=== PATIENT | female | born 1985 | race African-American/Black ===

== ENCOUNTER 2019-04-25 18:56 | Emergency (ER) | payer OTHER ==
[~2019-04-25] VITALS: Ht 177.8 cm; Wt 74.4 kg
[2019-04-25 19:15] VITALS: BP 117/73
--- NOTE | 2019-04-25 19:26 | Emergency Room Report ---
History of Present Illness General Chief Complaint: Female Urogenital Problems Source: Patient Present Illness HPI 33-year-old female presents to the emergency department requesting treatment for STDs. Patient reports that she had recent unprotected intercourse with someone that she believes is STD positive. Patient reports vaginal discharge as well as pelvic pain. She reports she is currently on her period. She denies urinary frequency, urgency or hematuria. She denies external vaginal lesions, rashes or itching. Patient reports some dysuria. Patient denies suspicion of . She denies abdominal pain, nausea, vomiting, fevers, chills, swollen tender lymph nodes or joint pain. She denies recent antibiotic use or history of immune compromise she reports history of asthma and migraines. She denies low back pain. No other aggravating or relieving factors at this time. Allergies: Coded Allergies: No Known Allergies (Unverified , 04/25/19) Patient History Past Medical History: see triage record Past Surgical History: none Pertinent Family History: none Last Menstrual Period: now Now: No Reviewed Nursing Documentation: PMH: Agreed; PSxH: Agreed Nursing Documentation-PMH Hx Asthma: Yes Review of Systems All Other Systems: negative except mentioned in HPI Physical Exam Vital Signs Date Time Temp Pulse Resp B/P (MAP) Pulse Ox O2 Delivery O2 Flow Rate FiO2 04/25/19 19:09 98.8 95 16 117/73 (88) 99 Room Air Sp02 EP Interpretation: reviewed, normal General Appearance: no apparent distress, alert, GCS 15, non-toxic Head: normocephalic, atraumatic Eyes: bilateral eye normal inspection, bilateral eye PERRL ENT: hearing grossly normal, normal voice Neck: full range of motion Respiratory: lungs clear, normal breath sounds, speaking full sentences Cardiovascular #1: regular rate, rhythm Gastrointestinal: normal bowel sounds, non tender, soft, non-distended, no guarding Rectal: deferred Genitourinary: normal inspection, no CVA tenderness, adnexa normal, other - Pelvic deferred by pt. Pt. also does not want Urine testing performed Musculoskeletal: back normal, gait/station normal, normal range of motion, non- tender Neurologic: alert, oriented x3, responsive, motor strength/tone normal, sensory intact, speech normal, grossly normal Psychiatric: judgement/insight normal Skin: other - deferred by pt. Lymphatic: no adenopathy Medical Decision Making PA Attestation Dr. Horowitz is my supervising Physician whom patient management has been discussed with. Diagnostic Impression: Primary Impression: Venereal disease contact ER Course 33-year-old female presents to the emergency department requesting treatment for STDs. Patient reports that she had recent unprotected intercourse with someone that she believes is STD positive. Patient reports vaginal discharge as well as pelvic pain. She reports she is currently on her period. She denies urinary frequency, urgency or hematuria. She denies external vaginal lesions, rashes or itching. Patient reports some dysuria. Patient denies suspicion of . She denies abdominal pain, nausea, vomiting, fevers, chills, swollen tender lymph nodes or joint pain. She denies recent antibiotic use or history of immune compromise she reports history of asthma and migraines. She denies low back pain. No other aggravating or relieving factors at this time. Ddx considered but are not limited to UTi , STI, G & C, trichomonas, Vaginitis , cervicitis, bartholins gland cyst or cellulitis. Vital signs: are WNL, pt. is afebrile H&PE are most consistent with exposure or contact with the venereal disease, patient is declines pelvic exam she also declines urinary testing. Patient states that she does not need to urinate and she does not want to wait for results. Patient states she just wants to be treated for chlamydia and gonorrhea. ORDERS: - Declined by pt. ---pt. declines hcg testing and therefore cannot be rx'd doxy ED INTERVENTIONS: -250mg Rocephin IM DISCHARGE: At this time pt. is stable for d/c to home. Will provide printed patient care instructions, and any necessary prescriptions. Care plan and follow up instructions have been discussed with the patient prior to discharge. Last Vital Signs Date Time Temp Pulse Resp B/P (MAP) Pulse Ox O2 Delivery O2 Flow Rate FiO2 04/25/19 19:09 98.8 95 16 117/73 (88) 99 Room Air Disposition: HOME, SELF-CARE Condition: Stable Scripts Azithromycin* (ZITHROMAX*) 250 Mg Tablet 250 MG ORAL DAILY, #6 TAB 0 Refills Take two tables once daily for 1 day, then one tablet once daily for 4 days. Prov: Viviane Alcantara 04/25/19 Patient Instructions: Sexually Transmitted Disease, [id number] Additional Instructions: Take medications as directed. Follow up with a OBGYN within 3-5 days, even if your symptoms have resolved. Return sooner to ED if new symptoms occur, or current symptoms become worse. - Please note that this Emergency Department Report was dictated using Flow[employer] assurance practice manager technology software, occasionally this can lead to erroneous entry secondary to interpretation by the dictation equipment. Viviane Alcantara Apr 25, 2019 19:26
[2019-04-25] MEDS ORDERED: Lidocaine 1% MPF 10mg/ml 5ml INJ ONE (19:30)
[2019-04-25] MEDS ORDERED: ZITHROMAX250 MG ORAL (19:47)
[2019-04-25 20:00] VITALS: BP 125/76
== END 2019-04-25 20:00 | disposition home or self-care (01) ==
LOC: EMR 19:35
DX: Z20.2 Contact with and (suspected) exposure to infections with a predominantly sexual mode of transmission (principal); J45.909 Unspecified asthma, uncomplicated
CPT/HCPCS: 96372; 96374; J0696; Z7502; 99284

== ENCOUNTER 2019-05-03 13:27 | Emergency (ER) | payer MEDICAID ==
[~2019-05-03] VITALS: Ht 177.8 cm; Wt 72.6 kg
[~2019-05-03 13:27] MED LIST: ZITHROMAX250 MG ORAL
--- NOTE | 2019-05-03 14:00 | NUR ---
ED Nurse Note: PT REPORTS OF HAVING VAGIANL PAIN WITH WHITE DISCHARGE X FEW DAYS AFTER HAVING UNPROTECTED SEXUAL ACTIVITY. BREATHING NORMAL/EVEN/UNLABORED. SKIN WARM/DRY/INTACT. NAD NOTED.
[2019-05-03 14:28] VITALS: BP 111/77
[2019-05-03] MEDS ORDERED: Azithromycin 250mg tab ORAL ONE (14:30)
[2019-05-03] MEDS ORDERED: Lidocaine 1% MPF 10mg/ml 5ml INJ ONE (14:30)
[2019-05-03 14:33] LABS: APPEARANCE,URINE CLEAR; BILIRUBIN, URINE NEGATIVE (NEGATIVE); GLUCOSE, URINE (UA) NEGATIVE (NEGATIVE); KETONES,URINE NEGATIVE (NEGATIVE); LEUKOCYTE ESTERASE ,URINE 1+ (NEGATIVE); NITRITE,URINE NEGATIVE (NEGATIVE); PH,URINE 6.5 (4.5-8.0); PROTEIN,URINE NEGATIVE (NEGATIVE); UROBILINOGEN,URINE NORMAL MG/DL (0.0-1.0)
[2019-05-03 14:36] LABS: COLOR,URINE YELLOW
--- NOTE | 2019-05-03 14:36 | Emergency Room Report ---
History of Present Illness General Chief Complaint: Vaginal Source: Patient Present Illness HPI 33-year-old female with no significant past medical history here complaining of scant amount of vaginal discharge that started after sexual activity 2 days ago. Denies urinary frequency and urgency, hematuria. Denies fever and chills , nausea vomiting, abdominal pain. Complains of vaginal pain with discharge. Does not know if partner is positive for any sexually diseases. She also reports that has extremely pruritic rash on both hands after received oral intercourse. Has not taken medication for symptom relief. Is requesting treatment for possible chlamydia and gonorrhea. Denies other associated symptoms. LMP was 2 weeks ago and regular. Allergies: Coded Allergies: No Known Allergies (Unverified , 04/25/19) Patient History Past Medical History: see triage record Past Surgical History: unable to obtain Pertinent Family History: none Last Menstrual Period: 04/23/2019 Now: No Immunizations: UTD Reviewed Nursing Documentation: PMH: Agreed; PSxH: Agreed Nursing Documentation-PMH Hx Cardiac Problems: No Hx Hypertension: No Hx Pacemaker: No Hx Asthma: Yes Hx COPD: No Hx Diabetes: No Hx Cancer: No Hx Gastrointestinal Problems: No Hx Dialysis: No History Of Psychiatric Problem: Yes - anxiety Hx Neurological Problems: No Hx Cerebrovascular Accident: No Hx Seizures: No Review of Systems All Other Systems: negative except mentioned in HPI Physical Exam Vital Signs Date Time Temp Pulse Resp B/P (MAP) Pulse Ox O2 Delivery O2 Flow Rate FiO2 05/03/19 13:45 97.3 89 16 111/77 (88) 99 Room Air Sp02 EP Interpretation: reviewed, normal General Appearance: no apparent distress, alert, GCS 15, non-toxic Head: normocephalic, atraumatic Eyes: bilateral eye normal inspection, bilateral eye PERRL ENT: hearing grossly normal, normal pharynx, no angioedema, normal voice Neck: full range of motion, supple, supple/symm/no masses Respiratory: chest non-tender, lungs clear, normal breath sounds, no rhonchi, speaking full sentences Cardiovascular #1: regular rate, rhythm, no edema, normal capillary refill Gastrointestinal: normal bowel sounds, non tender, soft, non-distended, no guarding, no rebound Genitourinary: no CVA tenderness Musculoskeletal: back normal, normal range of motion, gait/station normal, non- tender Neurologic: alert, motor strength/tone normal, oriented x3, sensory intact, responsive, speech normal Psychiatric: judgement/insight normal, memory normal, mood/affect normal, no suicidal/homicidal ideation Skin: no rash Lymphatic: no adenopathy Medical Decision Making PA Attestation All my diagnosis and treatment plans were reviewed ad discussed with my supervising physician Dr. Wu Diagnostic Impression: Primary Impression: Vaginitis ER Course 33-year-old female with no significant past medical history here complaining of scant amount of vaginal discharge that started after sexual activity 2 days ago. Denies urinary frequency and urgency, hematuria. Denies fever and chills , nausea vomiting, abdominal pain. Complains of vaginal pain with discharge. Does not know if partner is positive for any sexually diseases. She also reports that has extremely pruritic rash on both hands after received oral intercourse. Has not taken medication for symptom relief. Is requesting treatment for possible chlamydia and gonorrhea. Denies other associated symptoms. LMP was 2 weeks ago and regular. Ddx considered but are not limited to: vaginitis, yeast infection, BV, chlamydia , Gonorrhea, syphilis, HIV, herpes 1 or 2, vaginitis, UTI Vital signs: are WNL, pt. is afebrile H&PE are most consistent with : Vaginitis ORDERS: UA, urine test, fluconazole ED INTERVENTIONS: Azithromycin, Rocephin DISCHARGE: At this time pt. is stable for d/c to home. Will provide printed patient care instructions, and any necessary prescriptions. Care plan and follow up instructions have been discussed with the patient prior to discharge. Last Vital Signs Date Time Temp Pulse Resp B/P (MAP) Pulse Ox O2 Delivery O2 Flow Rate FiO2 05/03/19 14:28 97.3 78 16 111/77 99 Room Air Disposition: HOME, SELF-CARE Condition: Stable Scripts Fluconazole (FLUCONAZOLE) 100 Mg Tablet 100 MG ORAL DAILY for 7 Days, #7 TAB 0 Refills Prov: Reynaldo Brooks 05/03/19 Patient Instructions: Vaginitis, [id number] Reynaldo Brooks May 03, 2019 14:36
[2019-05-03] MEDS ORDERED: FLUCONAZOLE100 MG ORAL (14:37)
[2019-05-03 14:44] VITALS: BP 111/77
--- NOTE | 2019-05-03 14:45 | NUR ---
ED Nurse Note: Pt cleared by health care Provider for discharge. DC instructions/prescription was given and explained to pt and verbalized understanding of teachings. All medical deviecs such as ID band removed. Pt is AAO x4, ambulatory and left with all personal belongings.
== END 2019-05-03 14:45 | disposition home or self-care (01) ==
LOC: EMR 14:30
DX: N76.0 Acute vaginitis (principal); J45.909 Unspecified asthma, uncomplicated
CPT/HCPCS: 81003; 81025; 96372; J0696; Q0144; Z7502; 99283

== ENCOUNTER 2019-05-07 13:47 | Emergency (ER) | payer MEDICAID ==
[~2019-05-07] VITALS: Ht 177.8 cm; Wt 72.6 kg
[~2019-05-07 13:47] MED LIST changes: +FLUCONAZOLE100 MG ORAL
--- NOTE | 2019-05-07 14:00 | NUR ---
ED Nurse Note: Pt walked into ED c/o vaginal itching. Pain 3/10 vagina. Pt states no discharge. No redness, swelling at site. No acute distress.
--- NOTE | 2019-05-07 14:09 | Emergency Room Report ---
History of Present Illness General Chief Complaint: Female Urogenital Problems Source: Patient Present Illness HPI 33-year-old female presents with possible STD exposure after unprotected sex approximately 2 to 3 days ago, she endorses some vaginal itching some pain around her rectum, no fevers no chills, no chest pain, no aggravating relieving factors severity is mild, patient wants STD treatment patient presents for evaluation Allergies: Coded Allergies: No Known Allergies (Unverified , 04/25/19) Patient History Past Medical History: see triage record Last Menstrual Period: 04/23/19 Reviewed Nursing Documentation: PMH: Agreed; PSxH: Agreed Nursing Documentation-PMH Past Medical History: No Stated History Hx Cardiac Problems: No Hx Hypertension: No Hx Pacemaker: No Hx Asthma: Yes Hx COPD: No Hx Diabetes: No Hx Cancer: No Hx Gastrointestinal Problems: No Hx Dialysis: No Hx Neurological Problems: No Hx Cerebrovascular Accident: No Hx Seizures: No Review of Systems All Other Systems: negative except mentioned in HPI Physical Exam Vital Signs Date Time Temp Pulse Resp B/P (MAP) Pulse Ox O2 Delivery O2 Flow Rate FiO2 05/07/19 13:52 98.4 101 15 125/77 (93) 97 Room Air General Appearance: well appearing, no apparent distress Head: normocephalic, atraumatic Eyes: bilateral eye PERRL, bilateral eye EOMI ENT: hearing grossly normal, normal voice Neck: full range of motion, supple Respiratory: no respiratory distress, speaking full sentences Neurologic: alert, normal gait Psychiatric: mood/affect normal Skin: no rash Medical Decision Making Diagnostic Impression: Primary Impression: Possible exposure to STD ER Course 33-year-old female possibly has STD exposure will start ceftriaxone is a throat counseled patient on safe sex, follow-up with PCP Last Vital Signs Date Time Temp Pulse Resp B/P (MAP) Pulse Ox O2 Delivery O2 Flow Rate FiO2 05/07/19 13:52 98.4 101 15 125/77 (93) 97 Room Air Disposition: HOME, SELF-CARE Condition: Stable Referrals: [facility]s [facility] Patient Instructions: Chlamydia, Female, [id number], Gonorrhea Additional Instructions: The patient was provided with discharge instructions, notified to follow-up with a primary care doctor and or specialist in the next 24-48 hours, and to return to the ED if they have worsening of their symptoms. Please note that this report is being documented using DRAGON technology. This can lead to erroneous entry secondary to incorrect interpretation by the dictating instrument. PLEASE FOLLOW-UP WITH [facility] FOR THOROUGH TESTING FOR STDs Eric Dove MD May 07, 2019 14:09
[2019-05-07] MEDS ORDERED: Azithromycin 250mg tab ORAL ONE (14:15)
[2019-05-07] MEDS ORDERED: Lidocaine 1% MPF 10mg/ml 5ml INJ ONE (14:15)
[2019-05-07 14:38] LABS: APPEARANCE,URINE CLEAR; BILIRUBIN, URINE NEGATIVE (NEGATIVE); COLOR,URINE PALE YELLOW; GLUCOSE, URINE (UA) NEGATIVE (NEGATIVE); KETONES,URINE NEGATIVE (NEGATIVE); LEUKOCYTE ESTERASE ,URINE 1+ (NEGATIVE); NITRITE,URINE NEGATIVE (NEGATIVE); PH,URINE 6 (4.5-8.0); PROTEIN,URINE NEGATIVE (NEGATIVE); UROBILINOGEN,URINE NORMAL MG/DL (0.0-1.0)
[2019-05-07] MEDS ORDERED: ALBUTEROL SULF8.5 GM INH (14:47)
[2019-05-07 14:51] VITALS: BP 120/77
--- NOTE | 2019-05-07 14:54 | NUR ---
ER DISCHARGE NOTE: Patient is cleared to be discharged per ERMD, pt is aox4, on room air, with stable vital signs. pt was given dc and prescription instructions, pt was able to verbalize understanding, pt id band removed. pt is able to ambulate with steady gait. pt took all belongings. albuterol presc given.
== END 2019-05-07 14:54 | disposition home or self-care (01) ==
LOC: EMR 14:27
DX: L29.2 Pruritus vulvae (principal); K62.89 Other specified diseases of anus and rectum; J45.909 Unspecified asthma, uncomplicated
CPT/HCPCS: 81003; 81025; 96372; 96374; J0696; Q0144; Z7502; 99284

== ENCOUNTER 2019-05-11 23:44 | Emergency (ER) | payer MEDICAID ==
[~2019-05-11] VITALS: Ht 177.8 cm; Wt 74.4 kg
[~2019-05-11 23:44] MED LIST changes: +ALBUTEROL SULF8.5 GM INH
[2019-05-11] MEDS ORDERED: NKM (23:58)
--- NOTE | 2019-05-12 00:09 | NUR ---
ED Nurse Note: Pt ambulated to ED from home c/o white vaginal discharge for days. Pt was seen on the , given a 7 day zpack and has not finished it.
[2019-05-12] MEDS ORDERED: Lidocaine 1% MPF 10mg/ml 5ml INJ ONE (00:15)
[2019-05-12] MEDS ORDERED: DOXYCYCLINE MO100 MG ORAL (00:27)
[2019-05-12 00:32] VITALS: BP 114/65
--- NOTE | 2019-05-12 00:34 | Emergency Room Report ---
History of Present Illness General Chief Complaint: Female Urogenital Problems Source: Patient Present Illness Allergies: Coded Allergies: No Known Allergies (Unverified , 04/25/19) Patient History Last Menstrual Period: 04/21/19 Nursing Documentation-[facility] Past Medical History: No History, Except For Hx Cardiac Problems: No Hx Hypertension: No Hx Pacemaker: No Hx Asthma: Yes Hx COPD: No Hx Diabetes: No Hx Cancer: No Hx Gastrointestinal Problems: No Hx Dialysis: No Hx Neurological Problems: No Hx Cerebrovascular Accident: No Hx Seizures: No Physical Exam Vital Signs Date Time Temp Pulse Resp B/P (MAP) Pulse Ox O2 Delivery O2 Flow Rate FiO2 05/11/19 23:56 98.6 87 18 114/65 (81) 100 Room Air Medical Decision Making Diagnostic Impression: Primary Impression: Dysuria Additional Impression: STI (sexually transmitted infection) Last Vital Signs Date Time Temp Pulse Resp B/P (MAP) Pulse Ox O2 Delivery O2 Flow Rate FiO2 05/11/19 23:56 98.6 87 18 114/65 (81) 100 Room Air Disposition: HOME, SELF-CARE Condition: Stable Scripts Doxycycline Monohydrate* (DOXYCYCLINE MONOHYDRATE*) 100 Mg Capsule 100 MG ORAL Q12H, #14 CAP 0 Refills Prov: Miah Vitale M.D. 05/12/19 Referrals: [facility] Patient Instructions: Miah Jones M.D. May 12, 2019 00:34
[2019-05-12 01:03] LABS: APPEARANCE,URINE CLEAR; BILIRUBIN, URINE NEGATIVE (NEGATIVE); COLOR,URINE PALE YELLOW; GLUCOSE, URINE (UA) NEGATIVE (NEGATIVE); KETONES,URINE NEGATIVE (NEGATIVE); LEUKOCYTE ESTERASE ,URINE 2+ (NEGATIVE); NITRITE,URINE NEGATIVE (NEGATIVE); PH,URINE 6 (4.5-8.0); PROTEIN,URINE NEGATIVE (NEGATIVE); UROBILINOGEN,URINE NORMAL MG/DL (0.0-1.0)
[2019-05-12 01:22] VITALS: BP 120/70
--- NOTE | 2019-05-12 01:22 | NUR ---
ER DISCHARGE NOTE: Patient is cleared to be discharged per ERMD, pt is aox4, on room air, with stable vital signs. pt was given dc and prescription instructions, pt was able to verbalize understanding, pt id band removed without complications. pt is able to ambulate with steady gait. pt took all belongings.
== END 2019-05-12 01:23 | disposition home or self-care (01) ==
LOC: EMR 05-12 00:25
DX: R30.0 Dysuria (principal); A64 Unspecified sexually transmitted disease
CPT/HCPCS: 81003; 81025; 96372; 96374; J0696; Z7502; 99284

== ENCOUNTER 2019-05-23 20:17 | Emergency (ER) | payer MEDICAID ==
[~2019-05-23] VITALS: Ht 180.3 cm; Wt 75.7 kg
[~2019-05-23 20:17] MED LIST changes: +DOXYCYCLINE MO100 MG ORAL; +NKM
--- NOTE | 2019-05-23 20:41 | Emergency Room Report ---
History of Present Illness General Chief Complaint: Female Urogenital Problems Source: Patient Present Illness HPI Patient presents with complaints of some continued discomfort with urination Also reports that she has had off-and-on vaginal discharge Patient reports being treated for possible STDs however her partner who has not been Treated previously came with her as well and she would like him to be treated as well unfortunately the friend at bedside Refuses to check into the emergency room There was no reports of any recent fevers Denies any vomiting or diarrhea Allergies: Coded Allergies: No Known Allergies (Unverified , 04/25/19) Patient History Past Medical History: see triage record Now: No Reviewed Nursing Documentation: PMH: Agreed; PSxH: Agreed Nursing Documentation-PMH Past Medical History: No Stated History Hx Cardiac Problems: No Hx Hypertension: No Hx Pacemaker: No Hx Asthma: Yes Hx COPD: No Hx Diabetes: No Hx Cancer: No Hx Gastrointestinal Problems: No Hx Dialysis: No Hx Neurological Problems: No Hx Cerebrovascular Accident: No Hx Seizures: No Review of Systems All Other Systems: negative except mentioned in HPI Physical Exam Vital Signs Date Time Temp Pulse Resp B/P (MAP) Pulse Ox O2 Delivery O2 Flow Rate FiO2 05/23/19 20:28 98.2 86 16 130/80 (97) 98 Room Air Sp02 EP Interpretation: reviewed, normal General Appearance: well appearing, no apparent distress Head: normocephalic, atraumatic Eyes: bilateral eye EOMI ENT: hearing grossly normal Respiratory: no respiratory distress, no retraction, no accessory muscle use Musculoskeletal: normal inspection Neurologic: alert, oriented x3 Skin: no rash Lymphatic: no adenopathy Medical Decision Making Diagnostic Impression: Primary Impression: Dysuria ER Course Patient's presentation is concerning for multiple differentials Upon review of the patient's medical records she has been seen multiple times recently she has been treated for possible STDs patient reports that she continues to have Sexual contact with her partner and that is not being treated at this time she was asking her partner to Be treated however the partner did not want to check into the emergency room At this time there was a small argument between the 2 of them Patient has been provided Outpatient resources on several occasions And patient at this time is stable for close outpatient follow-up Last Vital Signs Date Time Temp Pulse Resp B/P (MAP) Pulse Ox O2 Delivery O2 Flow Rate FiO2 05/23/19 20:28 98.2 86 16 130/80 (97) 98 Room Air Status: unchanged Disposition: HOME, SELF-CARE Condition: Stable Additional Instructions: Patient eloped prior to receiving final discharge paperwork and further outpatient resources Jaqui Geronimo DO May 23, 2019 20:41
--- NOTE | 2019-05-23 21:45 | NUR ---
patient left as soon as dr mayfield evaluate the patient
[2019-05-23 22:12] VITALS: BP 130/80
== END 2019-05-23 21:45 | disposition home or self-care (01) ==
LOC: EMR 20:31
DX: R30.0 Dysuria (principal); J45.909 Unspecified asthma, uncomplicated; Z53.29 Procedure and treatment not carried out because of patient's decision for other reasons
CPT/HCPCS: 99282